=== PATIENT | male | born 1940 | race Caucasian/White ===

== ENCOUNTER 2017-07-30 03:16 | Observation (INO) ==
[2017-07-30] MEDS ORDERED: Furosemide 40 MG/4 ML VIAL IVP ONE (05:07)
[2017-07-30] MEDS ORDERED: Glycopyrrolate 0.2 MG/ML VIAL IVP PRN (05:10)
[2017-07-30] MEDS ORDERED: Haloperidol Lactate 5 MG/ML VIAL IVP PRN (05:12)
[2017-07-30] MEDS ORDERED: Bisacodyl 10 MG RECTAL SUPPOSITORY RC PRN (05:14)
[2017-07-30] MEDS: *HR* LORazepam 2 MG/ML VIAL IVP PRN (05:32)
[2017-07-30] MEDS: *HR* HYDROmorphone (PF) 1 MG/ML SYRINGE IVP PRN (05:34)
[2017-07-30] MEDS: Atropine Sulfate 1% 40 DROP/2 ML BOTTLE SL PRN (05:34)
[2017-07-30] MEDS ORDERED: 0.9 % Sodium Chloride 500 ML ONE (05:58)
[2017-07-30] MEDS ORDERED: Scopolamine Patch 1.5 MG PATCH.TD72 TD SCH (06:00)
[2017-07-30] MEDS ORDERED: methylPREDNISolone 125 MG/2 ML VIAL IVP SCH (06:00)
[2017-07-30] MEDS: *HR* HYDROmorphone 20 MG/20 ML PCA IVC PRN ×2 (06:15→12:14)
--- NOTE | 2017-07-30 08:48 | Pallative History & Physical ---
<Darci Wagner - Last Filed: 07/30/17 08:42> Date of Encounter: 07/30/17 Time of Encounter: 08:42 Assessment and Plan (1) Terminal care Current visit: Yes Status: Acute Patient's terminal restlessness is well controlled with: haldol 4 mg IV q2hr dilaudid 1 mg IV q2hr and IVC [employer] ativan 2 mg IV q2hr Patient's son felt that this level of sedation should be maintained and was resistant to lowering the timing or dosages of medication. (2) Difficulty clearing secretions Current visit: Yes Status: Acute This has improved since administration of atropine, lasix, glycopyrrolate, and scopalamine (3) COPD (chronic obstructive pulmonary disease) Current visit: Yes Status: Chronic End stage On hospice care Qualifiers: COPD type: unspecified COPD Qualified Code(s): J44.9 - Chronic obstructive pulmonary disease, unspecified Internal Medicine - H&P: HPI Admitted From: Home History of present illness: Mr. Kennedy is a 76 year old male who presents for emergent GIP palliative due to terminal restlessness that is more severe than could be managed by skilled nursing care. 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 In the last few days, the patient's restlessness has increased dramatically, with the patient patient frequently yelling out. Since admission, the patient has required frequent dosages of haldol, dilaudid, and ativan. Additionally, the son notes that his father has been having large amounts of secretions. Past Med Surg Social Fam HX - Past Medical History Medical history: COPD, hypertension Psychiatric history: no psych history - Social History Smoking Status: Former smoker Alcohol use: none Drug use: none - Family History Brother Living Status: Still Living Hx Family Respiratory Disorders: Yes (copd) Internal Medicine - H&P: Meds Albuterol Neb [Proventil Neb] 1 puff IH Q4H PRN 09/29/15 [History] Omeprazole [PriLOSEC] 20 mg PO DAILY 09/29/15 [History] Tamsulosin [Flomax] 0.4 mg PO DAILY 09/29/15 [History] Verapamil HCl [Verapamil ER] 120 mg PO DAILY 09/29/15 [History] Azithromycin [Zithromax] 250 mg PO MOWEFR 07/30/17 [History] Docusate Sodium [Dok] 100 mg PO DAILY 07/30/17 [History] Haloperidol Oral Conc [Haldol] 4 mg PO Q2H PRN 07/30/17 [History] LORazepam Oral Conc [Ativan Oral Conc] 1 mg PO Q2H PRN 07/30/17 [History] LevETIRAcetam [Keppra] 500 mg PO DAILY 07/30/17 [History] Morphine Oral CONC [Roxanol] 1 ml PO Q1H PRN 07/30/17 [History] Oxygen 2 - 4 l NS CONT 07/30/17 [History] hydrOXYzine HCl [Hydroxyzine HCl] 25 mg PO DAILY 07/30/17 [History] predniSONE [PredniSONE] 10 mg PO DAILY 07/30/17 [History] 3 Allergy/AdvReac Type Severity Reaction Status Date / Time levofloxacin [From Levaquin] AdvReac Hives Verified 09/29/15 22:38 ROS unobtainable: due to mental status Palliative Care-Exam - Constitutional Vitals: Temp Pulse Resp BP Pulse Ox 100.3 F H 144 24 117/81 88 07/30/17 05:40 07/30/17 05:40 07/30/17 05:40 07/30/17 05:40 07/30/17 05:40 General appearance: Present: thin - Head Head Exam: Present: atraumatic, normal inspection, normocephalic - ENT ENT exam: Present: mucous membranes dry - Respiratory Respiratory exam: Present: decreased breath sounds, rhonchi - Cardiovascular Cardiovascular exam: Present: RRR, +S1, +S2 - GI/Abdominal Exam GI/Abdominal exam: Present: diminished bowel sounds, soft - Skin Skin exam: Present: dry, warm Palliative Quality Palliative Quality: Screen for Code Status: Yes, Screen for Goals of Care: Yes, Screen for Pain: Yes, If Pain Regimen Started, Initiate Bowel Regimen: Yes, Screen for Nausea/Vomitting: Yes <Hernan Mancini - Last Filed: 07/30/17 11:15> Date of Encounter: 07/30/17 Internal Medicine - H&P: HPI History of present illness: Mr. Kennedy is a 76 year old male Palliative Care-Exam - Constitutional Vitals: Temp Pulse Resp BP Pulse Ox 100.3 F H 144 24 117/81 88 07/30/17 05:40 07/30/17 05:40 07/30/17 05:40 07/30/17 05:40 07/30/17 05:40 Palliative Quality Code Status: 07/30/17 11:11 CODE [Resuscitation Status: Active] [RES] Routine Comment: Resuscitation Status: DNR-Comfort Care - Attending Attestation I examined this patient and my medical decision-making was reviewed with the Resident Physician. I agree with the documented findings, disposition and treatment plan as described except to the extent set forth below.
[2017-07-30] MEDS: MethylPREDNISolone 40 MG/ML VIAL IVP SCH (18:20)
[2017-07-31] MEDS: MethylPREDNISolone 40 MG/ML VIAL IVP SCH (07:15)
[2017-07-31] MEDS: *HR* HYDROmorphone (PF) 1 MG/ML SYRINGE IVP PRN ×4 (07:58→21:21)
--- NOTE | 2017-07-31 09:46 | Palliative - Consult Note ---
Date of Encounter: 07/31/17 Time of Encounter: 09:30 - Assessment and Plan (1) Generalized pain Current Visit: Yes Status: Acute Assessment and plan: Continuous Hydromorphone currently at 0.5/hr. Has only required one breakthrough dose of PRN over last 24 hours. Monitor (2) Difficulty clearing secretions Current Visit: Yes Status: Acute Assessment and plan: This has improved greatly - will continue current medications and monitor. (3) COPD (chronic obstructive pulmonary disease) Current Visit: Yes Status: Chronic Qualifiers: COPD type: unspecified COPD Qualified Code(s): J44.9 - Chronic obstructive pulmonary disease, unspecified Palliative-CN HPI - Data of Consult Consult date: 07/31/17 Requesting Physician: Hernan Mancini MD Primary Care Provider: PCP NONE - Consult Narrative Palliative Care/Comfort Measures: Hospice care History of present illness: Mr. Kennedy is a 76 year old male that has been enrolled with [facility] the last few months for terminal diagnosis of end stage COPD. Patient was admitted as emergent inpatient hospice in middle of night r/t agitation and terminal restlessness. states he was receiving medications every hour at home, and still unable to be managed. Had large amount secretions at home as well difficult to manage. She describes that he had a stroke at home day after , and has been unable to take po nutrition since. Upon my visit, he is resting quietly. Does respond slightly to verbal stimulation by raising eyebrows, but does not open eyes or attempt to verbalize. and granddaughter at bedside, and pleased with his care and comfort level. CC: Hernan Mancini MD Past Med Surg Social Fam HX - Past Medical History Medical history: COPD, hypertension Psychiatric history: no psych history - Social History Smoking Status: Former smoker Alcohol use: none Drug use: none - Family History Brother Living Status: Still Living Hx Family Respiratory Disorders: Yes (copd) Medications and Allergies Albuterol Neb [Proventil Neb] 1 puff IH Q4H PRN 09/29/15 [History] Omeprazole [PriLOSEC] 20 mg PO DAILY 09/29/15 [History] Tamsulosin [Flomax] 0.4 mg PO DAILY 09/29/15 [History] Verapamil HCl [Verapamil ER] 120 mg PO DAILY 09/29/15 [History] Azithromycin [Zithromax] 250 mg PO MOWEFR 07/30/17 [History] Docusate Sodium [Dok] 100 mg PO DAILY 07/30/17 [History] Haloperidol Oral Conc [Haldol] 4 mg PO Q2H PRN 07/30/17 [History] LORazepam Oral Conc [Ativan Oral Conc] 1 mg PO Q2H PRN 07/30/17 [History] LevETIRAcetam [Keppra] 500 mg PO DAILY 07/30/17 [History] Morphine Oral CONC [Roxanol] 1 ml PO Q1H PRN 07/30/17 [History] Oxygen 2 - 4 l NS CONT 07/30/17 [History] hydrOXYzine HCl [Hydroxyzine HCl] 25 mg PO DAILY 07/30/17 [History] predniSONE [PredniSONE] 10 mg PO DAILY 07/30/17 [History] 3 Allergy/AdvReac Type Severity Reaction Status Date / Time levofloxacin [From Levaquin] AdvReac Hives Verified 09/29/15 22:38 ROS unobtainable: due to mental status Palliative Care-Exam - Constitutional Vitals: Temp Pulse Resp BP Pulse Ox 98.3 F 97 15 139/81 94 07/31/17 07:45 07/31/17 07:45 07/31/17 07:45 07/31/17 07:45 07/31/17 07:45 General appearance: Present: no acute distress, thin - Head Head Exam: Present: normal inspection, normocephalic - Eye Eye exam: Present: normal appearance - Respiratory Respiratory exam: Present: decreased breath sounds, CTAB - Cardiovascular Cardiovascular exam: Present: +S1, +S2 - GI/Abdominal Exam GI/Abdominal exam: Present: normal bowel sounds, soft - Catheter Type: Urethral (Marina) Additional comments: Cath with light [place] urine - Extremities Exam Extremities exam: Present: normal capillary refill, normal inspection - Neurological Exam Additional comments: Raises eyebrows with assessment. No verbal response. - Skin Skin exam: Present: dry, pallor, warm Consult Discharge Plan - Plan Referrals: NONE,PCP [Primary Care Provider] - Palliative Quality Palliative Quality: Screen for Code Status: Yes, Screen for Goals of Care: Yes, Screen for Pain: Yes, If Pain Regimen Started, Initiate Bowel Regimen: Yes, Screen for Nausea/Vomitting: Yes Code Status: 07/30/17 11:11 CODE [Resuscitation Status: Active] [RES] Routine Comment: Resuscitation Status: DNR-Comfort Care
[2017-07-31] MEDS: *HR* LORazepam 2 MG/ML VIAL IVP PRN (16:27)
[2017-07-31] MEDS ORDERED: 0.9 % Sodium Chloride 500 ML ONE (16:56)
[2017-07-31] MEDS: Atropine Sulfate 1% 40 DROP/2 ML BOTTLE SL PRN (20:12)
[2017-07-31] MEDS: *HR* HYDROmorphone 20 MG/20 ML PCA IVC PRN (23:19)
[2017-08-01 07:21] VITALS: BP 122/74
--- NOTE | 2017-08-01 08:15 | Palliative Progress Note ---
<Darci Wagner - Last Filed: 08/01/17 08:13> Date of Encounter: 08/01/17 Time of Encounter: 07:40 - Assessment and plan (1) Terminal care Current Visit: Yes Status: Acute Assessment and plan: Maintain level of sedation. Comfort measures only, including O2. Continuous dilaudid drip. Last breakthrough medication needed at 2121 last night. (2) Difficulty clearing secretions Current Visit: Yes Status: Acute Assessment and plan: Stable. Improved since admission. (3) COPD (chronic obstructive pulmonary disease) Current Visit: Yes Status: Chronic Assessment and plan: End stage On hospice care Qualifiers: COPD type: unspecified COPD Qualified Code(s): J44.9 - Chronic obstructive pulmonary disease, unspecified - Time Spent With Patient Total time spent is greater than 50% in coordination of care (as documented) at patient's floor/unit and/or counseling patient: - Subjective Interval history: No interval change. Patient is resting comfortably. at bedside and happy with his care and comfort. Verbalized that she does not want any prolonging measures. - Constitutional General appearance: Present: no acute distress, thin - Head Head exam: Present: atraumatic, normal inspection, normocephalic - Respiratory Respiratory exam: Present: decreased breath sounds, CTAB - Cardiovascular Cardiovascular exam: Present: RRR, +S1, +S2 - GI/Abdominal GI/Abdominal exam: Present: normal bowel sounds, soft - Neurological Exam Neurological exam: Absent: alert - Skin Skin exam: Present: dry, warm Palliative Quality Palliative Quality: Screen for Code Status: Yes, Screen for Goals of Care: Yes, Screen for Pain: Yes, If Pain Regimen Started, Initiate Bowel Regimen: Yes, Screen for Nausea/Vomitting: Yes Code Status: 07/30/17 11:11 CODE [Resuscitation Status: Active] [RES] Routine Comment: Resuscitation Status: DNR-Comfort Care Consult Discharge Plan - Plan Referrals: NONE,PCP [Primary Care Provider] - <Hernan Mancini - Last Filed: 08/01/17 08:50> Date of Encounter: 08/01/17 - Time Spent With Patient Total time spent is greater than 50% in coordination of care (as documented) at patient's floor/unit and/or counseling patient: - Attending Attestation I examined this patient and my medical decision-making was reviewed with the Resident Physician. I agree with the documented findings, disposition and treatment plan as described except to the extent set forth below. Palliative Quality Code Status: 07/30/17 11:11 CODE [Resuscitation Status: Active] [RES] Routine Comment: Resuscitation Status: DNR-Comfort Care
[2017-08-01] MEDS: *HR* HYDROmorphone (PF) 1 MG/ML SYRINGE IVP PRN ×5 (09:27→18:03)
[2017-08-01] MEDS: *HR* LORazepam 2 MG/ML VIAL IVP PRN ×4 (11:56→18:03)
[2017-08-01] MEDS ORDERED: Haloperidol Lactate 5 MG/ML VIAL IVP PRN (15:46)
[2017-08-01] MEDS ORDERED: *HR* HYDROmorphone 20 MG/20 ML PCA IVC PRN (15:47)
--- NOTE | 2017-08-02 09:06 | Death Note ---
Discharge Sum: Summary - Date and Time Date of admission: 07/30/17 04:33 Date of : 08/01/17 Time of : 20:39 - Summary Details: She was admitted to the general inpatient hospice service for medic control of shortness of breath. This was accomplished by using a drip. Symptoms were aggressively treated. The patient passed quietly and comfortably with family at bedside evening. Time of was 2038 hrs. Also was respiratory failure secondary to COPD the same COPD a been going on for years respiratory failure for days. She was a former smoker. - Additional Data Confirmation of as documented by pronouncing clinician: no pulse, no respirations, no heart sounds Family: at bedside Attending/PCP notified?: Yes Attending physician: Hernan Mancini MD Was code activated?: No Autopsy requested?: No shot examiner notified?: No Organ bank notified?: Yes Advance directives: Yes Hospice patient?: Yes Discharge Sum: Diag - PCOD Probable Cause of : Respiratory arrest Discharge Sum: Prov - Provider Primary care physician: PCP NONE Consults: 07/30/17 06:47 Consult to Palliative Care [CONS] Routine Comment: Consulting Provider: Palliative Care Disha Reason for Consult: End of life care Call Completed: Yes
== END 2017-08-01 20:39 | disposition expired ==
LOC: 2ANU
PROVIDERS: ADMIT Family Medicine Hospice and Palliative Medicine; ATTEND Family Medicine Hospice and Palliative Medicine